=== PATIENT | male | born 1980 | race Hispanic/Latino ===

== ENCOUNTER 2016-08-31 23:39 | Emergency (ER) | payer BC ==
[2016-08-31 23:47] VITALS: BP 135/81; PULSE 61; RESP 16; TEMP 98.4; O2SAT 98
--- NOTE | 2016-09-01 00:48 | ED PDOC ---
HPI: General Adult Time Seen by Provider: 08/31/16 23:50 Chief Complaint (Nursing): Flu-like Symptoms Chief Complaint (Provider): ear pain History Per: Patient History/Exam Limitations: no limitations Onset/Duration Of Symptoms: Hrs Current Symptoms Are (Timing): Still Present Additional History Per: Patient Additional Complaint(s): 35 y/o male no past medical history presents with left ear pain x 4 hours. Patient notes cold symptoms x 3 days, tonight noted slight pain in left ear, which got progressively worse throughout the night. Patient notes pain to radiate to left jaw, teeth. Pain improved with ibuprofen and [id number] earache drops. Denies fever, nasal congestion, drainage from ear. Past Medical History Reviewed: Historical Data, Nursing Documentation, Vital Signs Vital Signs: Last Vital Signs Temp 98.4 F 08/31/16 23:43 Pulse 61 08/31/16 23:43 Resp 16 08/31/16 23:43 BP 135/81 08/31/16 23:43 Pulse Ox 98 08/31/16 23:43 - Medical History PMH: No Chronic Diseases - Surgical History Surgical History: No Surg Hx - Family History Family History: States: Unknown Family Hx - Home Medications Home Medications: Ambulatory Orders Medication Instructions Recorded Amoxicillin 875 mg PO Q12 #19 tablet 09/01/16 - Allergies Allergies/Adverse Reactions: Allergies Allergy/AdvReac Type Severity Reaction Status Date / Time No Known Allergies Allergy Verified 08/31/16 23:43 Review of Systems ROS Statement: Except As Marked, All Systems Reviewed And Found Negative ENT: Positive for: Ear Pain (left) Physical Exam - Reviewed Nursing Documentation Reviewed: Yes Vital Signs Reviewed: Yes - Physical Exam Appears: Positive for: Well, Non-toxic, No Acute Distress Head Exam: Positive for: ATRAUMATIC, NORMAL INSPECTION, NORMOCEPHALIC Skin: Positive for: Normal Color Eye Exam: Positive for: Normal appearance ENT: Positive for: TM Is/Are (left TM erythema, bulging. Right TM clear. EACs clear b/l. No mastoid swelling/tenderness b/l) Cardiovascular/Chest: Positive for: Regular Rate, Rhythm Respiratory: Positive for: Normal Breath Sounds Extremity: Positive for: Normal ROM Neurologic/Psych: Positive for: Alert, Oriented - ECG O2 Sat by Pulse Oximetry: 98 - Progress ED Course And Treament: Patient educated on findings, discharged with rx Amoxicillin (dose given in ED) Advised to continue ibuprofen PRN pain. Follow up PMD 2-3 days. Return to ED for worsening/concerning symptoms. Disposition - Clinical Impression Clinical Impression: Otitis media - Patient ED Disposition Is Patient to be Admitted: No Counseled Patient/Family Regarding: Diagnosis, Need For Followup, Rx Given - Disposition Referrals: Ever Burkett MD [Primary Care Provider] - Disposition: Routine/Home Disposition Time: 00:48 Condition: STABLE Prescriptions: Amoxicillin 875 mg PO Q12 #19 tablet Instructions: Otitis Media (ED)
== END 2016-09-01 00:38 | disposition home or self-care (01) ==
LOC: H.ER 23:39
DX: H66.90 Otitis media, unspecified, unspecified ear (principal)